=== PATIENT | female | born 1985 | race African-American/Black ===

== ENCOUNTER → 2016-04-23 | Outpatient (CLI) | payer OTHER ==
[~2016-04-23] MED LIST: IBUPROFEN800 MG PO; PREDNISONE10 MG PO
--- NOTE | ~2016-04-23 | CR127 ---
[facility] A Service of [facility] / [facility] RADIOLOGY TEXT RESULTS PATIENT: JARETT KAY LOCATION: [facility] : 85 UNIT #: [id number] AGE: [address]: STU DELONG SEX: F ORDER DR: [id number] [facility] [address] [place], [place] [address] [id number] O MR#: [id number] Acc #: [id number] NAME: JARETT KAY : 1985 SEX: F STUDY DATE/TIME: 04/23/2016 16:08 UNIT: [facility] ROOM: STUDY DESCRIPTION: CR Foot Complete Min 3 View Rt Attending Physician: Stu Delong M.D. Referring Physician: Stu Delong M.D. Ordering Physician: Stu Delong M.D. Primary Care Physician: [facility] MEDICAL IMAGING REPORT This report is preliminary unless electronic signature is present EXAM Right foot, 3 views INDICATIONS 31-year-old female with pain and swelling of the medial right foot for 3 months. No comparisons. FINDINGS There has been prior plate and screw fixation of the first and second tarsometatarsal joints. Deformity of the proximal phalanx of the second and fourth toe may represent old injuries. No definite acute fracture. Alignment is normal. IMPRESSION No acute fracture. Postop changes as described. Dictated by... Aaron Amezquita M.D. THIS IS AN ELECTRONICALLY VERIFIED REPORT Aaron Amezquita M.D. at 04/24/2016 4:42 PM ARS/stan TD: 04/23/2016 23:24 JOB #: [id number] MEDICAL IMAGING REPORT COPY
== END | disposition home or self-care (01) ==
LOC: CRAD 15:58
DX: M79.671 Pain in right foot (principal); M79.89 Other specified soft tissue disorders
CPT/HCPCS: 73630